=== PATIENT | male | born 1950 | race Caucasian/White ===

== ENCOUNTER 2017-11-29 08:18 | Day surgery (SDC) | payer OTHER, MEDICARE ==
[2017-11-26 16:02] VITALS: BMI 28.4
[2017-11-29] MEDS ORDERED: PROPOFOL 20 ML ONE ×2 (08:24)
[2017-11-29] MEDS ORDERED: LIDOCAINE HCL/PF 2% SDV 5ML VIAL ONE (08:24)
[2017-11-29 10:32] VITALS: BP 118/65; PULSE 68; TEMP 98
== END 2017-11-29 10:34 | disposition home or self-care (01) ==
LOC: FASU-ENDO 08:18
PROVIDERS: ATTEND Internal Medicine Gastroenterology
PROC: 0DJD8ZZ Inspection of Lower Intestinal Tract, Via Natural or Artificial Opening Endoscopic (ICD-10-PCS; principal; 2017-11-29 09:34)
DX: Z86.010 Personal history of colon polyps (principal); Z83.71 Family history of colonic polyps

== ENCOUNTER 2023-01-11 07:43 | Day surgery (SDC) | payer OTHER, BC ==
[2023-01-04 14:33] VITALS: BMI 28.0
[2023-01-11 10:04] VITALS: TEMP 97
[2023-01-11 10:05] VITALS: RESP 18
[2023-01-11 10:06] VITALS: BP 122/63; PULSE 71
== END 2023-01-11 10:05 | disposition home or self-care (01) ==
LOC: FASU-ENDO 07:43
PROVIDERS: ATTEND Internal Medicine Gastroenterology
PROC: 0DJD8ZZ Inspection of Lower Intestinal Tract, Via Natural or Artificial Opening Endoscopic (ICD-10-PCS; principal; 2023-01-11 09:18)
DX: Z12.11 Encounter for screening for malignant neoplasm of colon (principal); Z83.71 Family history of colonic polyps